=== PATIENT | male | born 1995 | race Caucasian/White ===

== ENCOUNTER 2018-08-20 12:44 | Emergency (ER) | payer SELFPAY ==
[~2018-08-20] VITALS: Ht 170.2 cm; Wt 54.9 kg
[2018-08-20 12:55] VITALS: Ht 170.2 cm; Wt 54.9 kg
[2018-08-20 15:23] VITALS: BP 128/88
== END 2018-08-20 15:23 | disposition home or self-care (01) ==
LOC: ED 12:44
DX: S41.011D Laceration without foreign body of right shoulder, subsequent encounter (principal); X58.XXXD Exposure to other specified factors, subsequent encounter